=== PATIENT | male | born 1960 | race Caucasian/White ===

== ENCOUNTER 2024-02-29 14:41 | Inpatient (IN) | payer SELFPAY ==
[2024-02-29] VITALS (25 sets, daily range): BP systolic 148–187; BP diastolic 87–124; PULSE 76–101; RESP 14–20; TEMP 36.4–36.8; O2SAT 94–98; BMI 35.9; BMI 34.1
--- NOTE | 2024-02-29 14:43 | ECG_ITS ---
APPROVED REPORT Exam: Resting ECG HR:98 bpm ECG Measurements Heart Rate 98 AXES MI 157 P 50 QRSd 75 QRS -20 QT 346 T 23 QTc 402 Conclusion SINUS RHYTHM LOW QRS VOLTAGE IN PRECORDIAL LEADS [QRS DEFLECTION < 1.0 mV IN CHEST LEADS] POSSIBLE RIGHT VENTRICULAR CONDUCTION DELAY [RSR (QR) IN V1/V2] POSSIBLE ANTERIOR MYOCARDIAL INFARCTION , PROBABLY OLD [30 ms Q WAVE IN V3/V4, OR R < 0.2 mV IN V4] INFERIOR MYOCARDIAL INFARCTION , PROBABLY OLD [40+ ms Q WAVE AND/OR ST/T ABNORMALITY IN II/aVF] ABNORMAL ECG Concern for acute ischemia Electronically signed by : ELO GRIGGS, 02/29/2024 16:25:23
--- NOTE | 2024-02-29 14:43 | PC.NURSE ---
Ariel PA at BS for pt eval; family at BS
--- NOTE | 2024-02-29 14:49 | PC.NURSE ---
STEMI overhead paged
--- NOTE | 2024-02-29 14:50 | ED_ITS ---
<Statement entered by Margaret Solis DO - 02/29/24 16:15> I was consulted by the [place], and we discussed the complexity of the problems being addressed. I approved the treatment and management plan for this patient's care in the emergency department, thus performing a substantive portion of the medical decision making. I interpreted the EKG and noted that it was concerning for STEMI, so Patient Accounts Specialist was activated after an interactive discussion with Dr. Yan. He advised heparin bolus as well as Brilinta, which I ordered. Patient was also given aspirin to complete the dose of aspirin that he took prior to arrival. Patient was taken to Patient Accounts Specialist in stable condition. I independently interpreted the EKG at 1446. Normal sinus rhythm with a ventricular rate of [address] elevations noted in aVL, V1, V2 with depressions in leads III and aVF. Concern for acute ischemia. Margaret Solis DO Discharge Plan Clinical Impressions Clinical Impression: ST elevation (STEMI) myocardial infarction Discharge ED Provider: Margaret Solis HPI General Stated Complaint: CP Time Seen by Provider: 02/29/24 14:46 History of Present Illness HPI narrative: Patient presents for evaluation of chest pain. Patient states that he has been having chest pain off and on since last evening. He first noticed it last evening during splitting wood. He describes it as a dull but intense pain located in his left chest radiates to his back. Patient has treated it with baking soda and water. He is had it all day with waxing and waning intensity. He denies any diaphoresis vomiting diarrhea but does endorse nausea. [facility] Disclaimer: The information contained in this section may have been updated after the patient was seen, as this information can be updated by other users. Social History Smoking Status: Never smoker alcohol intake: never current occupational status: retired Travel in the last 8 weeks: None ROS Obtained: Yes Systems reviewed as appropriate & no additional complaints except as documented Physical Exam General General appearance: alert and in no apparent distress Chest Chest inspection: Absent tenderness Respiratory Respiratory exam: Present normal lung sounds bilaterally; Absent respiratory distress Cardiovascular Cardiovascular exam: Present regular rate, normal heart sounds, +S1 and +S2 Abdominal Exam Abdominal exam: Present soft and normal bowel sounds; Absent tenderness, guarding, rebound or rigidity Extremities Exam Extremities exam: Present normal inspection and full ROM Back Exam Back exam: Present normal inspection and full ROM; Absent tenderness Neurological Exam Neurological exam: Present alert and oriented X3 HEART Score HEART Score HEART Score assessment performed?: No Critical Care Critical Care Time Critical Care Time: Yes Attestation: On , the high probability of a clinically significant, sudden or life threaten ing deterioration of the following system(s) required my full and direct attention, intervention and personal management. The time I documented below is in addition to time spent performing reported procedures but includes the following listed in this critical care notation. Total Time Total Critical Care Time: 30 Medical Decision Making Medical Records Medical records reviewed: Yes I reviewed the patient's medical records. [facility] Inquiry Pt receiving controlled substance: No Lab Data Lab results reviewed: Yes I reviewed the patient's lab results. Response Orders (Tests/Meds): ED MEDICATIONS Generic Name Dose Route Start Last Admin Trade Name Freq PRN Reason Stop Dose Admin Ticagrelor 180 mg 02/29/24 14:49 Ticagrelor 90mg Tablet PO 02/29/24 14:50 ONCE ONE Discontinued Medications Generic Name Dose Route Start Last Admin Trade Name Freq PRN Reason Stop Dose Admin Aspirin 324 mg 02/29/24 14:47 Aspirin 81mg Chewable Tablet PO 02/29/24 14:48 ONCE ONE Heparin Sodium (Porcine) 11,300 unit 02/29/24 14:49 Heparin Sodium 5,000 Unit/Ml Vial 100 unit/kg (89511 unit) 02/29/24 14:50 IV ONCE ONE ORDERS Category Date Time Status Cardiology Consult [Consult to Cardiology] [CONS] Cons 02/29/24 14:50 Active Routine Complete Blood Count Auto Diff Stat Lab 02/29/24 14:45 Received Comprehensive Metabolic Panel Stat Lab 02/29/24 14:45 Received Trop I [Troponin I] Stat Lab 02/29/24 14:45 Received Troponin I Q3H Lab 02/29/24 18:00 Ordered Troponin I Q3H Lab 02/29/24 21:00 Ordered MDM Narrative Medical Decision Narrative: In summary patient is a 64-year-old male who presents to the emergency department for evaluation of chest pain. Patient is significantly hypertensive with a systolic blood pressure greater than 180 but otherwise hemodynamically stable. Patient is afebrile. Physical exam is remarkable for no reproducible chest pain on palpation normal breath sounds no abdominal tenderness equal bilateral pulses. Differential diagnosis includes ACS versus dissection versus intestinal cause. Initial workup will be conducted with hematologic labs twel ve-lead EKG. Twelve-lead EKG shows ST elevation with Q wave formation. Code STEMI called and cardiology consultation about patient management. Patient will be taken directly to the Patient Accounts Specialist after cardiology consultation further workup will be pending by the hospitalist team after cardiac catheterization.
--- NOTE | 2024-02-29 14:54 | IR_ITS ---
APPROVED REPORT Patient Location: Outpatient Grinder Set Up Operator Gear Tool: SANDRA Monk RT (R) PROCEDURES Left heart catheterization Left ventriculogram Selective coronary angiogram Drug-eluting stent deployment to the proximal to mid LAD INDICATION Acute anterior ST elevation myocardial infarction, Coronary artery disease Informed consent was obtained prior to the procedure. COMPLICATIONS NONE Estimated Blood Loss: LESS THAN 10 ML TECHNIQUE One percent lidocaine used to anesthetize the right anterior aspect of the wrist. The right radial artery was accessed via the Seldinger technique. A 6 Kenyan sheath was placed in the right radial artery. 2.5 mg of Verapamil, 800 mcg of nitroglycerin, 1mg Lidocaine and 5000 U Heparin were given through the arterial sheath. The papa catheter was also used to perform left heart catheterization, left ventriculogram and selective coronary angiogram. At the end the diagnostic angiogram the guide catheter was placed in left main artery followed by Choice PT extra-support wire placed down the LAD. A guide liner was advanced and a 3.5 x 38 mm Gibson frontier stent was deployed at 16 ba reducing the critical stenosis to 0%. JOVANY II flow was improved to JOVANY-3 flow. At the end of the procedure the apparatus was removed the sheath was removed and hemostasis was achieved using TR banding patient was transferred to the postop putting in stable condition ANGIOGRAPHIC RESULTS The left main artery Normal The left anterior descending artery Has proximal 30 to 40% stenoses with a mid vessel focal greater than 90% stenosis accompanied by JOVANY II flow. Following revascularization there was wide patency throughout the LAD The circumflex artery Large and dominant giving rise to a large second obtuse marginal artery which has proximal 70 and mid vessel 80% stenosis which then goes on and supplies a large posterior descending artery The right coronary artery Is codominant and has a 70 to 80% stenosis in the distal segment The DAVE ventriculogram reveals Dilated ventricle anterior hypokinesis estimate ejection fraction 25% The left ventricular end-diastolic pressure Severely elevated at [address] elevation myocardial infarction accompanied by drug-eluting stent deployment to the proximal to mid LAD reducing the critical stenosis to 0% Persistent severe stenosis and a large codominant circumflex artery Persistent severe stenosis in the distal codominant right coronary artery Severely reduced ejection fraction with elevated LVEDP PLAN 1. Continue Brilinta and aspirin 2. Start Entresto and uptitrate 3. Hold for beta-blockers for the time being and start once more hemodynamically stable and after patient is tolerating Entresto 4. Start high intensity statin with a goal LDL less than 55 5. Echocardiogram in the morning 6. LifeVest prior to discharge 7. Supportive care Electronically signed by : Randy Yan MD 02/29/2024 15:59:17
[2024-02-29 14:57] LABS: Chloride 106 mmol/L (98-107); Sodium 141 mmol/L (136-145)
[2024-02-29 15:00] LABS: Alanine Aminotransferase 72 U/L (12-78); Albumin/Globulin Ratio 1.5 (1.1-1.8); Alkaline Phosphatase 96 U/L (38-126); Aspartate Amino Transferase 125 U/L (17-59); Blood Urea Nitrogen 12 mg/dl (9-20); Carbon Dioxide 29 mmol/L (22.0-30.0); Creatinine Clearance Estimated 101 mL/min (50-200); Estimated Glomerular Filt Rate 61 ml/min (>60); GFR (African American) 74 ML/MIN (>60); Globulin 3.4 g/dL (1.3-3.2); Total Protein,Serum 8.4 g/dl (6.3-8.2)
[2024-02-29 15:01] LABS: Calcium 9.5 mg/dl (8.4-10.2); Glucose 121 mg/dl (74-100)
--- NOTE | 2024-02-29 15:07 | P.CONCA_ITS ---
History of Present Illness History of Present Illness Consult date: 02/29/24 Requesting physician: Margaret Solis Consult reason: chest pain Chief complaint: chest pain History of present illness: 64-year-old white male without known cardiovascular disease who states he has had high blood pressure untreated for over 1 year because he did not like the way the blood pressure meds made him feel. He is not diabetic and denies alcohol and tobacco use. Was chopping and stacking wood last night when he began developing mild chest discomfort. Thought it was GI related so he took baking soda which did not help much. Symptoms continued this morning he presented to the emergency room. EKG in triage shows ST changes V1 V2 with possible reciprocal changes in II and III. Blood pressure is 187/115. Patient is in no acute distress. EKG was sent to Dr. Yan and patient is being prepped for Shelving Supervisor. I discussed case with patient and his son who are agreeable to proceed as planned. Code STEMI has been called. No labs are available yet. [facility] Disclaimer: The information contained in this section may have been updated after the patient was seen, as this information can be updated by other users. Social History Smoking Status: Never smoker alcohol intake: never current occupational status: retired Travel in the last 8 weeks: None Review of Systems Constitutional Constitutional: Denies fatigue and Denies weakness Eyes Eyes: Denies loss of vision ENT Ears, Nose, Mouth, and Throat: Denies hearing loss and Denies vertigo *Cardiovascular Cardiovascular: Reports chest pain, Denies dyspnea and Denies syncope *Respiratory Respiratory: Denies cough and Denies dyspnea *Gastrointestinal Gastrointestinal: Denies change in stool character, Denies nausea and Denies vomiting *Genitourinary Genitourinary: Denies difficulty urinating *Musculoskeletal Musculoskeletal: Denies muscle weakness Integumentary/Breasts Skin/Breast: Denies changing lesions *Neurologic Neurologic: Denies loss of vision, Denies syncope, Denies vertigo and Denies weakness Endocrine Endocrine: Denies fatigue Exam Data for Last 24 hours Vital signs and Labs for Last 24 Hours: Temp Pulse Resp BP Pulse Ox O2 Del Method 97.7 F 96 H 16 187/115 H 98 Room Air 02/29/24 14:52 02/29/24 14:52 02/29/24 14:52 02/29/24 14:52 02/29/24 14:52 02/29/24 14:52 Laboratory Results - last 24 hr 02/29/24 14:45: Sodium 141, Potassium 4.0, Chloride 106, Carbon Dioxide 29, Anion Gap 10.0, BUN 12, Creatinine 1.20, Estimated Creat Clear 101, Estimated GFR 61, Est GFR ( Amer) 74, Glucose 121 H, Calcium 9.5, Total Bilirubin 1.0, AST 125 H, ALT 72, Alkaline Phosphatase 96, Total Protein 8.4 H, Albumin 5.0, Globulin 3.4 H, Albumin/Globulin Ratio 1.5 I & O for Last 24 hours: Intake & Output 02/26/24 02/27/24 02/28/24 02/29/24 23:59 23:59 23:59 23:59 Weight 250 lb Constitutional Constitutional: no acute distress and cooperative *Routine HEENT Exam Eye: Present PERRL *Routine Respiratory Exam Respiratory: Present CTA bilaterally; Absent accessory muscle use, wheezes or crackles *Routine Cardiovascular Exam Cardiovascular: Present RRR, Normal S1 and Normal S2; Absent murmur, gallop or rubs *Routine Abdominal Exam Abdominal: Present soft; Absent tenderness *Routine Extremities Exam Extremities: Present pulses intact; Absent cyanosis or edema *Routine Skin Exam Skin: Present intact; Absent erythema or wounds *Routine Neurological Exam Neurological: Present alert and oriented X3 Routine Psychiatric Exam Psychiatric: Present cooperative Meds Home Medications and Allergies New Prescriptions to Start Prescriptions: Allergies Allergy/AdvReac Type Severity Reaction Status Date / Time No Known Allergies Allergy Verified 02/29/24 15:04 Assessment and Plan *Assessment and plan (1) ST elevation (STEMI) myocardial infarction: Status: Acute Qualifiers: Involved coronary artery: unspecified coronary artery Qualified Code(s): I21.3 - ST elevation (STEMI) myocardial infarction of unspecified site Category: Medical Code(s): I21.3 - ST elevation (STEMI) myocardial infarction of unspecified site Plan AW-STEMI - STEMI protocol in place, pt going immediately to laborer/key man [facility] Emergency - untreated >1 year per pt - BP 180s with CP - reevaluate post cath - consider AAA, pulses equal, pain is mild Further plans pending, post cath
[2024-02-29 15:13] LABS: Troponin I 6.23 ng/ml (0.00-0.034)
--- NOTE | 2024-02-29 15:14 | PC.NURSE ---
Dr. Solis notified of Troponin of 6.23.
--- NOTE | 2024-02-29 15:23 | PC.NURSE ---
Patient taken to lab intern.
[2024-02-29 15:24] LABS: Basophils # 0.1 K/mm3 (0-0.2); Basophils % 1.1 % (0.1-2.0); Eosinophils % 0.2 % (0.1-12.0); Hematocrit 51.6 % (42.0-52.0); Hemoglobin 16.9 g/dL (14.1-18.0); Lymphocytes # 2.3 K/mm3 (0.7-4.5); Mean Corpuscular HGB Conc 32.7 g/dL (31.8-35.4); Mean Corpuscular Hemoglobin 30.2 pg (27.0-31.2); Mean Corpuscular Volume 92.1 fl (80-94); Mean Platelet Volume 9.2 fl (7.4-10.4); Monocytes # 0.7 K/mm3 (0.1-1.0); Monocytes % 7.8 % (1.7-9.3); Neutrophils # 6.4 K/mm3 (1.8-7.8); Neutrophils % 66.9 % (37.0-80.0); Platelet Count 222 K/mm3 (142-424); Red Cell Distribution Width 14.3 % (11.5-17.5); White Blood Count 9.5 K/mm3 (4.8-10.8)
--- NOTE | 2024-02-29 15:30 | PC.NURSE ---
REPORT GIVEN TO ROSAMARIA THOMPSON
[2024-02-29] MEDS: HEPARIN SODIUM 5,000 UNIT/ML VIAL 11300 UNIT IV (15:35)
[2024-02-29] MEDS: HEPARIN 1,000 UNITS/500ML NS (CATH LAB) 3000 UNIT IV (15:36)
[2024-02-29] MEDS: ASPIRIN 81MG CHEWABLE TABLET 324 MG PO (15:36)
[2024-02-29] MEDS: LIDOCAINE 1% 10ML MDV 20 ML IJ ×2 (15:36→15:39)
[2024-02-29] MEDS: TICAGRELOR 90MG TABLET 180 MG PO (15:37)
[2024-02-29] MEDS: MIDAZOLAM 2MG/2ML VIAL 1 MG IV (15:37)
[2024-02-29] MEDS: 0.9 % SODIUM CHLORIDE 500 ML 25 ML IV (15:37)
[2024-02-29] MEDS: diphenhydrAMINE 50MG/ML VIAL 50 MG IV (15:39)
[2024-02-29] MEDS: FENTANYL 100MCG/2ML VIAL 50 MCG IV (15:39)
[2024-02-29] MEDS: VERAPAMIL 2.5MG/ML 2ML VIAL 2.5 MG IV (15:40)
[2024-02-29] MEDS: NITROGLYCERIN 800MCG/8ML SYR (CATH LAB) 800 MCG IA (15:41)
[2024-02-29] MEDS: IOPAMIDOL-370 (76%);100ML BOTTLE 110 ML IV (16:24)
[2024-02-29 16:27] LABS: CATHL Activated Clotting Time 340 SEC (74-125)
--- NOTE | 2024-02-29 17:28 | PC.NURSE ---
PATIENT ARRIVED TO FLOOR BY STRETCHER [address] MICHELLE, SRNA
--- NOTE | 2024-02-29 18:06 | P.HP_ITS ---
History of Present Illness *Admission Date: 02/29/24 *Reason for visit:: ST elevation NC, hypertensive emergency *History of present illness: Really nice patient with past medical history of hypertension without medication. Patient presented to hospital complaining of chest pain. Patient found to have STEMI in emergency room and immediately taken to [facility]. Patient evaluated by Dr. Rodriguez prior to [employer] [facility] trip. Stated that he suffered from chest discomfort today 5/10, achy, substernal, nonradiating without prodromal symptoms. Denied taking any medications at home. Denied fevers, chills, known sick contacts, recent travel, blurry vision, headaches, abdominal pain, diarrhea, constipation. Patient received LAD stent in [employer] and noted to have ejection fraction 25%. Denies history of heart failure. Blood pressure consistently above 160/100 during initial hospitalization evaluations. Denies taking blood pressure medicines at home. [facility] Disclaimer: The information contained in this section may have been updated after the patient was seen, as this information can be updated by other users. Social History Smoking Status: Never smoker alcohol intake: never current occupational status: retired Travel in the last 8 weeks: None Review of Systems Review of Systems Review of systems:: pertinent systems reviewed and negative unless documented below Constitutional Constitutional: Denies weakness Eyes Eyes: Denies loss of vision ENT Ears, Nose, Mouth, and Throat: Denies vertigo *Cardiovascular Cardiovascular: Denies syncope *Neurologic Neurologic: Denies loss of vision, Denies syncope, Denies vertigo and Denies weakness Meds Home Medications and Allergies Home Medications ?Medication ?Instructions ?Recorded ?Confirmed ?Type hawthorn 500 mg capsule (hawthorn 500 mg PO DAILY 02/29/24 02/29/24 History anna) New Prescriptions to Start Prescriptions: Allergies Allergy/AdvReac Type Severity Reaction Status Date / Time No Known Allergies Allergy Verified 02/29/24 15:04 Exam Data for Last 24 hours Vital signs and Labs for Last 24 Hours: Temp Pulse Resp BP Pulse Ox O2 Del Method 97.7 F 83 18 167/123 H 97 Room Air 02/29/24 15:21 02/29/24 17:45 02/29/24 17:45 02/29/24 17:45 02/29/24 17:45 02/29/24 17:45 Laboratory Results - last 24 hr 02/29/24 14:45: WBC 9.5, RBC 5.60, Hgb 16.9, Hct 51.6, MCV 92.1, MCH 30.2, MCHC 32.7, RDW 14.3, Plt Count 222, MPV 9.2, Neut % (Auto) 66.9, Lymph % (Auto) 24.0, [place] % (Auto) 7.8, Eos % (Auto) 0.2, Baso % (Auto) 1.1, Neut # (Auto) 6.4, Lymph # (Auto) 2.3, [place] # (Auto) 0.7, Eos # (Auto) 0.0, Baso # (Auto) 0.1, Sodium 141, Potassium 4.0, Chloride 106, Carbon Dioxide 29, Anion Gap 10.0, BUN 12, Creatinine 1.20, Estimated Creat Clear 101, Estimated GFR 61, Est GFR ( Amer) 74, Glucose 121 H, Calcium 9.5, Total Bilirubin 1.0, AST 125 H, ALT 72, Alkaline Phosphatase 96, Troponin I 6.23 H, Total Protein 8.4 H, Albumin 5.0, Globulin 3.4 H, Albumin/Globulin Ratio 1.5 02/29/24 15:21: Activated Clotting Time 340 H* I & O for Last 24 hours: Intake & Output 02/26/24 02/27/24 02/28/24 02/29/24 23:59 23:59 23:59 23:59 Output Total 0 / 0 Balance 0 / 0 Weight 113.398 kg *Routine HEENT Exam Head: Present normocephalic Eye: Present EOMI and normal accommodation ENT: Present mucous membranes moist *Routine Neck Exam Neck: Present supple, full ROM and normal carotid upstroke *Routine Respiratory Exam Respiratory: Present CTA bilaterally and normal respiratory effort *Routine Cardiovascular Exam Cardiovascular: Present Normal S1 and Normal S2 *Routine Abdominal Exam Abdominal: Present soft and normoactive bowel sounds *Routine Rectal Exam Rectal:: deferred *Routine Genitalia Exam Genitalia:: deferred *Routine Extremities Exam Extremities: Present full ROM and normal capillary refill *Routine Skin Exam Skin: Present intact and dry *Routine Neurological Exam Neurological: Present alert, oriented X3 and CN II-XII intact H&P: Result Impressions 02/29/2024 cardiac catheterization EF 25%, with LAD stent placed during cardiac cath. Assessment and Plan *Assessment and plan (1) ST elevation (STEMI) myocardial infarction: Status: Acute Qualifiers: Involved coronary artery: unspecified coronary artery Qualified Code(s): I21.3 - ST elevation (STEMI) myocardial infarction of unspecified site Category: Medical Code(s): I21.3 - ST elevation (STEMI) myocardial infarction of unspecified site (2) Acute systolic CHF (congestive heart failure): Status: Acute Category: Medical Code(s): I50.21 - Acute systolic (congestive) heart failure (3) Hypertensive emergency: Status: Acute Category: Medical Code(s): I16.1 - Hypertensive emergency Plan STEMI status post emergent cardiac catheterization: ? Admit to stepdown, LAD stent placed in [employer]. EF 25%. New onset heart failure with reduced ejection fraction EF 25%: ? EF 25% noted on cardiac cath today. Order echocardiogram for tomorrow, consult cardiology. Cautious fluid management throughout hospitalization. Start Entresto today. Hypertensive emergency: ? Started on Entresto today. Also start hydrochlorothiazide 25 p.o. daily. Patient's blood pressure consistently above 160/100 during initial hospital assessments. Also placed as needed IV hydralazine on chart for elevated blood pressures. PPx: Lovenox subcutaneous starting 03/21. Patient given IV heparin in [employer] today. CODE STATUS full FEN: Cardiac diet
[2024-02-29] MEDS: hydroCHLOROthiazide 25MG TABLET 25 MG PO (18:13)
[2024-02-29] MEDS: SACUBITRIL/VALSARTAN 24-26MG TABLET 1 EACH PO (18:13)
[2024-02-29] MEDS: HYDRALAZINE 20MG/ML VIAL 10 MG IV (20:20)
--- NOTE | 2024-02-29 20:56 | PC.NURSE ---
Radialband off at this time, tegaderm and 2x2s applied. No bleeding noted, no bruising.
--- NOTE | 2024-02-29 21:33 | P.PN_ITS ---
Subjective *Date: 02/29/24 *Time: 21:33 Interval history: Nurses reported using medication to try to bring blood pressure down, including as needed medication, systolic blood pressure still 160. Nurse reported to me that the patient did have a history of anxiety and was feeling anxious tonight Exam Data for Last 24 hours Vital signs and Labs for Last 24 Hours: Temp Pulse Resp BP Pulse Ox O2 Del Method 98.2 F 101 H 18 172/115 H 94 L Room Air 02/29/24 19:15 02/29/24 20:15 02/29/24 20:15 02/29/24 20:15 02/29/24 20:15 02/29/24 20:56 Laboratory Results - last 24 hr 02/29/24 14:45: WBC 9.5, RBC 5.60, Hgb 16.9, Hct 51.6, MCV 92.1, MCH 30.2, MCHC 32.7, RDW 14.3, Plt Count 222, MPV 9.2, Neut % (Auto) 66.9, Lymph % (Auto) 24.0, [place] % (Auto) 7.8, Eos % (Auto) 0.2, Baso % (Auto) 1.1, Neut # (Auto) 6.4, Lymph # (Auto) 2.3, [place] # (Auto) 0.7, Eos # (Auto) 0.0, Baso # (Auto) 0.1, Sodium 141, Potassium 4.0, Chloride 106, Carbon Dioxide 29, Anion Gap 10.0, BUN 12, Creatinine 1.20, Estimated Creat Clear 101, Estimated GFR 61, Est GFR ( Amer) 74, Glucose 121 H, Calcium 9.5, Total Bilirubin 1.0, AST 125 H, ALT 72, Alkaline Phosphatase 96, Troponin I 6.23 H, Total Protein 8.4 H, Albumin 5.0, Globulin 3.4 H, Albumin/Globulin Ratio 1.5 02/29/24 15:21: Activated Clotting Time 340 H* I & O for Last 24 hours: Intake & Output 02/26/24 02/27/24 02/28/24 02/29/24 23:59 23:59 23:59 23:59 Intake Total 120 / 120 Output Total 0 / 0 Balance 120 / 120 Weight 120.712 kg Constitutional Constitutional: no acute distress and obese Comments: Alert oriented expressing no difficulty except his anxiety *Routine Respiratory Exam Respiratory: Present normal respiratory effort and able to speak in complete sentences *Routine Cardiovascular Exam Cardiovascular: Present RRR Comments: No chest pain, Routine Psychiatric Exam Psychiatric: Present normal affect, cooperative, good insight and good judgment Assessment and Plan *Assessment and plan (1) Hypertension: Status: Acute Qualifiers: Hypertension type: renovascular hypertension Qualified Code(s): I15.0 - Renovascular hypertension Category: Medical Code(s): I10 - Essential (primary) hypertension (2) Anxiety: Status: Acute Category: Medical Code(s): F41.9 - Anxiety disorder, unspecified Plan 1. Hypertension/anxiety, patient has received his blood pressure medicine including as needed medication, without expected results. Systolic still greater than 160. My examination finds he is having no chest pain monitors appear to be normal no difficulty with respiration. He is active alert his is in the room they did discuss the fact that he does have anxiety and it has been worsening as he is getting older. With that today has been quite trying for him. :Plan to try Valium 2 mg p.o., hoping that this will help him sleep will continue to monitor him throughout the night keeping an eye on O2 saturations. Reason for this also talking with him he is a snorer according to his has never had a sleep study. Will evaluate for any decrease in oxygenation if he is able to get into a deep sleep. If blood pressure does not decrease to acceptable level would like to get him closer to 240 systolic, may try extra medication.
[2024-02-29] MEDS: diazePAM 2MG TABLET 2 MG PO (21:41)
[2024-03-01] VITALS (12 sets, daily range): BP systolic 108–149; BP diastolic 41–109; PULSE 70–91; RESP 14–22; TEMP 36.5–37.1; O2SAT 91–99; BMI 33.4
--- NOTE | 2024-03-01 04:56 | PC.NURSE ---
Alert and oriented. Pt has had no complaints of chest pain throughout the night. Radialband removed this shift, tegaderm and 2x2s placed, dressing CDI. Pt blood pressure has been elevated intermittently throughout shift, [facility] aware, treated patient with PRN medication to lower BP. Pt did complain of having anxiety, states he feels very anxious at times at home, SKYLA Sarabia notified of anxiety, treated per aug. Pt did state intermittently throughout the night he would wake up and feel SOA, sweaty, and get anxious, this was relayed to this nurse on second assessment, [facility] notified of patient statement, no new orders at this time. Uses the urinal independently. Has ambulated in the room with no issues. remained at bedside throughout the night. Tolerated room air, O2 sat >90%. Call light in reach.
[2024-03-01 06:17] LABS: Basophils # 0.1 K/mm3 (0-0.2); Basophils % 0.5 % (0.1-2.0); Eosinophils % 0.2 % (0.1-12.0); Hematocrit 51.2 % (42.0-52.0); Hemoglobin 17.1 g/dL (14.1-18.0); Lymphocytes # 1.7 K/mm3 (0.7-4.5); Lymphocytes % 17.3 % (10-50); Mean Corpuscular HGB Conc 33.3 g/dL (31.8-35.4); Mean Corpuscular Hemoglobin 30.6 pg (27.0-31.2); Mean Corpuscular Volume 91.8 fl (80-94); Mean Platelet Volume 8.4 fl (7.4-10.4); Monocytes # 0.9 K/mm3 (0.1-1.0); Monocytes % 8.5 % (1.7-9.3); Neutrophils # 7.4 K/mm3 (1.8-7.8); Neutrophils % 73.6 % (37.0-80.0); Platelet Count 197 K/mm3 (142-424); Red Blood Count 5.58 M/mm3 (4.60-6.20); Red Cell Distribution Width 14.7 % (11.5-17.5); White Blood Count 10.1 K/mm3 (4.8-10.8)
[2024-03-01 06:34] LABS: Anion Gap 13.8 mEq/L (5-15); Blood Urea Nitrogen 10 mg/dl (9-20); Calcium 9.5 mg/dl (8.4-10.2); Carbon Dioxide 20 mmol/L (22.0-30.0); Chloride 108 mmol/L (98-107); Chol/HDL Ratio 7.6 (1-3.5); Cholesterol 287 mg/dl (140-200); Creatinine Clearance Estimated 126 mL/min (50-200); Estimated Glomerular Filt Rate 75 ml/min (>60); GFR (African American) 91 ML/MIN (>60); Glucose 130 mg/dl (74-100); HDL Cholesterol 38 mg/dl (40-60); Magnesium 2.1 mg/dl (1.6-2.3); Potassium 3.8 mmoL/L (3.5-5.1); Sodium 138 mmol/L (136-145); Triglycerides 244 mg/dl (30-150); VLDL Cholesterol 49 mg/dL (0-40)
--- NOTE | 2024-03-01 06:39 | XR_ITS ---
FINAL REPORT CLINICAL HISTORY: CHF, COPD FINDINGS: SINGLE-VIEW CHEST The heart size is normal. The mediastinum is normal. The lungs are clear. There is no pneumothorax. IMPRESSION: No acute cardiopulmonary process. Reviewed, Interpreted and Dictated by Reg Perez III, MD Transcribed by Marita Salmon Authenticated and [facility]
--- NOTE | 2024-03-01 06:39 | CA_ITS ---
APPROVED REPORT EXAM: Comprehensive 2D, Doppler, and color-flow Echocardiogram [place]: ANNIKA Willett, RVS Ht: 6 ft 2 in Wt: 260lbs BSA: 2.43 BP: 129/92 mmHg Indications: STEMI, Dilated CM per Cath, Untreated HTN, H/O pedal edema 2D Dimensions IVSd 1.21 cm LVEF (Visual) 69.90 % PWd 1.24 cm LA Volume 58.80 mL LVDd 5.14 cm LA Volume Index 24.768169 mL/m2 (M/F) 16-34 LVDs 3.10 cm EF AP4 52.60 % Left Atrium 4.74 cm GL Strain -15.5 % M-Mode Dimensions LA Diam 4.26 cm (1.9-4.0) EPSs 1.03 cm TAPSE 1.79 (<1.7) LV Diastology E Decel Time 153 (160-240 msec) E/A Ratio 0.55 MED A' 12.50 cm/s LAT A' 10.30 cm/s Aortic Valve CHELA Index 1.35 cm2/m2 AoV Peak Rajinder. 97.0 (50-130 cm/s) AO Peak GR. 3.80 mmHg AO Mean GR. 1.90 (<5 mmHg) AO VTI 14.3 (18-25 cm) CHELA (VTI) 3.35 (2.5-4.5 cm2) Mitral Valve MV A Velocity 77.0 (40-130 cm/s) E/A Ratio 0.55 Pulmonary Valve PV Peak Velocity 88.0 (50-150 cm/s) Left Ventricle The left ventricle is normal size. The left ventricular systolic function is mildly reduced. There is increased LV wall thickness. The bases have normal contractility. There is severe hypokinesis of the LV apex. Transmitral Doppler flow pattern suggests impaired LV relaxation. LVEF is 45%. Right Ventricle Right ventricle is mildly dilated. The right ventricular systolic function is normal. Atria The left atrium size is normal. The right atrium size is normal. There is no Doppler evidence of interatrial shunt. Aortic Valve The aortic valve opens well. There is no aortic valvular stenosis. No aortic regurgitation is present. Mitral Valve The mitral valve is normal in structure. No evidence of mitral valve stenosis. Trace mitral valve regurgitation noted. Tricuspid Valve Tricuspid valve is grossly normal in structure and function. Trace tricuspid regurgitation. There is insufficient TR jet to estimate RVSP. Pulmonic Valve The pulmonary valve is normal in structure. Trace pulmonic regurgitation. Great Vessels The aortic root is normal in size. The ascending aorta is normal in size. IVC is normal in size and collapses >50% with inspiration. Pericardium There is no pericardial effusion. Other Information Study Quality: Fair Conclusion Mild reduction in LV systolic function (LVEF 45%). The bases have normal contractility. There is severe hypokinesis of the LV apex. Mild RV dilation. No significant valvular stenosis or regurgitation. Electronically signed by : Katharina Camarena MD 03/01/2024 12:40:49
[2024-03-01 06:45] LABS: Direct LDL Cholesterol 182.51 mg/dL (100-129)
--- NOTE | 2024-03-01 07:16 | ECG_ITS ---
APPROVED REPORT Exam: Resting ECG HR:88 bpm ECG Measurements Heart Rate 88 AXES FL 147 P 36 QRSd 94 QRS -61 QT 379 T 100 QTc 425 Conclusion SINUS RHYTHM POSSIBLE LEFT ATRIAL ENLARGEMENT [-0.1mV P-WAVE IN V1/V2] LOW QRS VOLTAGE IN PRECORDIAL LEADS [QRS DEFLECTION < 1.0 mV IN CHEST LEADS] LEFT ANTERIOR FASCICULAR BLOCK [QRS AXIS <= -45, QR IN I, RS IN II] Atrial abnormality. Nonspecific ST-T wave changes and poor R wave progression, unchanged from yesterday's tracing ABNORMAL ECG UNCONFIRMED REPORT Electronically signed by : Luis Enrique Anaya MD 03/01/2024 08:10:10
[2024-03-01] MEDS: PANTOPRAZOLE 40MG TABLET 40 MG PO (08:35)
[2024-03-01] MEDS: ENOXAPARIN 40MG/0.4ML SYRINGE 40 MG SQ (08:35)
[2024-03-01] MEDS: SPIRONOLACTONE 25MG TABLET 25 MG PO (08:35)
[2024-03-01] MEDS: SACUBITRIL/VALSARTAN 24-26MG TABLET 1 EACH PO ×2 (08:35→20:00)
[2024-03-01] MEDS: hydroCHLOROthiazide 25MG TABLET 25 MG PO (08:37)
[2024-03-01] MEDS: DAPAGLIFLOZIN PROPANEDIOL 10 MG TABLET PO (10:22)
[2024-03-01] MEDS: ASPIRIN EC 81MG TABLET 81 MG PO (10:23)
[2024-03-01] MEDS: METOPROLOL SUCCINATE XL 25MG TABLET 25 MG PO (10:23)
--- NOTE | 2024-03-01 10:54 | EXP.CARD.PN ---
Subjective Subjective Date: 03/01/24 Time: 10:54 Interval history: Successful cath yesterday with stenting of LAD. Patient reports feeling significantly better this morning. BP improved and stable. Patient reports shortness of breath with his Brilinta. Exam Data for Last 24 hours Vital signs and Labs for Last 24 Hours: Temp Pulse Resp BP Pulse Ox O2 Del Method 98.0 F 81 20 108/79 L 94 L Room Air 03/01/24 08:02 03/01/24 10:00 03/01/24 10:00 03/01/24 10:00 03/01/24 10:00 03/01/24 10:00 Laboratory Results - last 24 hr 02/29/24 14:45: WBC 9.5, RBC 5.60, Hgb 16.9, Hct 51.6, MCV 92.1, MCH 30.2, MCHC 32.7, RDW 14.3, Plt Count 222, MPV 9.2, Neut % (Auto) 66.9, Lymph % (Auto) 24.0, [place] % (Auto) 7.8, Eos % (Auto) 0.2, Baso % (Auto) 1.1, Neut # (Auto) 6.4, Lymph # (Auto) 2.3, [place] # (Auto) 0.7, Eos # (Auto) 0.0, Baso # (Auto) 0.1, Sodium 141, Potassium 4.0, Chloride 106, Carbon Dioxide 29, Anion Gap 10.0, BUN 12, Creatinine 1.20, Estimated Creat Clear 101, Estimated GFR 61, Est GFR ( Amer) 74, Glucose 121 H, Calcium 9.5, Total Bilirubin 1.0, AST 125 H, ALT 72, Alkaline Phosphatase 96, Troponin I 6.23 H, Total Protein 8.4 H, Albumin 5.0, Globulin 3.4 H, Albumin/Globulin Ratio 1.5 02/29/24 15:21: Activated Clotting Time 340 H* 03/01/24 05:17: WBC 10.1, RBC 5.58, Hgb 17.1, Hct 51.2, MCV 91.8, MCH 30.6, MCHC 33.3, RDW 14.7, Plt Count 197, MPV 8.4, Neut % (Auto) 73.6, Lymph % (Auto) 17.3, [place] % (Auto) 8.5, Eos % (Auto) 0.2, Baso % (Auto) 0.5, Neut # (Auto) 7.4, Lymph # (Auto) 1.7, [place] # (Auto) 0.9, Eos # (Auto) 0.0, Baso # (Auto) 0.1, Sodium 138, Potassium 3.8, Chloride 108 H, Carbon Dioxide 20 L, Anion Gap 13.8, BUN 10, Creatinine 1.00, Estimated Creat Clear 126, Estimated GFR 75, Est GFR ( Amer) 91 D, Glucose 130 H, Calcium 9.5, Magnesium 2.1, Triglycerides 244 H, Cholesterol 287 H, LDL Cholesterol Direct 182.51 H, VLDL Cholesterol 49 H, HDL Cholesterol 38 L, Cholesterol/HDL Ratio 7.6 H I & O for Last 24 hours: Intake & Output 02/27/24 02/28/24 02/29/24 03/01/24 23:59 23:59 23:59 23:59 Intake Total 370 / 370 360 / 360 Output Total 0 / 0 700 / 700 Balance 370 / 370 -340 / -340 Weight 266 lb 2 oz 260 lb 11.2 oz Constitutional Constitutional: no acute distress and cooperative *Routine HEENT Exam Eye: Present PERRL *Routine Respiratory Exam Respiratory: Present CTA bilaterally; Absent accessory muscle use, wheezes or crackles *Routine Cardiovascular Exam Cardiovascular: Present RRR, Normal S1 and Normal S2; Absent murmur, gallop or rubs Comments: Right radial cath site normal on inspection and palpation *Routine Abdominal Exam Abdominal: Present soft; Absent tenderness *Routine Extremities Exam Extremities: Present pulses intact; Absent cyanosis or edema *Routine Skin Exam Skin: Present intact; Absent erythema or wounds *Routine Neurological Exam Neurological: Present alert and oriented X3 Routine Psychiatric Exam Psychiatric: Present cooperative Progress Note: A&P Assessment and plan (1) ST elevation myocardial infarction (STEMI) of anterior wall: Status: Acute (2) Hypertensive emergency: Status: Acute (3) Anxiety: Status: Acute (4) Hyperlipidemia: Status: Acute (5) Obesity: Status: Acute Assessment and Plan Assessment and Plan for All Diagnoses:: AW-STEMI - symptoms present 12h prior to presentation - [facility] 02/28 -LAD 90%, stented. OM 70% and 80%, RCA 70% and 80% EF 25%, LVEDP 35 - Echo is pending - Pt is SOA with Brilinta will change to Effient - Started on GDMT for CAD and HFrEF (although ECHO is pending) - Cardiac rehab at discharge - LifeVest if EF <35% Htn Emergency - untreated >1 year per pt - BP 180s with CP on arrival - well controlled now 120s or less post cath - BID BP log at home Hyperlipidemia - LDL 182 on arrival - start high dose statin Obesity, BMI 33 - discussed aggressive weight loss via diet/exercise/cardiac rehab *Pt will need to stay for 48h obs post ME.
[2024-03-01] MEDS: PRASUGREL 10MG TAB 60 MG PO (11:02)
--- NOTE | 2024-03-01 13:58 | EXP.ACUTE.PN ---
Subjective *Date: 03/01/24 *Time: 14:08 Interval history: Patient denied SOB, chest discomfort during evaluation with Dr. Rodriguez today. Patient reportedly suffered from some dyspnea issues on Brilinta, and currently being changed to Effient by portfolio consultant. Patient's present during examination by Dr. Rodriguez today. States SOB/chest discomfort much better after cardiac catheterization procedure yesterday. Requesting to walk in halls today. Denies fevers, chills overnight. Medical Exam Vital signs and Labs for Last 24 Hours: Vital Signs Temp Pulse Pulse Resp BP BP BP 03/01/24 12:52 03/01/24 12:00 80 03/01/24 11:20 97.9 F 91 H 22 115/41 L 03/01/24 11:00 03/01/24 10:00 81 20 108/79 L 03/01/24 08:02 98.0 F 03/01/24 08:00 90 03/01/24 08:00 80 18 136/78 03/01/24 07:38 03/01/24 07:35 03/01/24 06:57 03/01/24 06:30 137/95 H 03/01/24 06:00 80 16 144/109 H 03/01/24 04:52 03/01/24 04:00 80 03/01/24 04:00 03/01/24 04:00 98.2 F 85 16 132/89 03/01/24 03:00 03/01/24 02:00 84 14 149/102 H 03/01/24 00:50 03/01/24 00:00 80 03/01/24 00:00 98.8 F 82 16 135/84 02/29/24 23:15 87 16 149/101 H 02/29/24 22:54 02/29/24 22:14 82 17 148/87 H 02/29/24 21:15 91 H 16 164/100 H 02/29/24 20:56 02/29/24 20:15 101 H 18 172/115 H 02/29/24 20:00 80 02/29/24 19:45 02/29/24 19:15 98.2 F 91 H 16 156/98 H 02/29/24 18:45 87 16 170/115 H 02/29/24 18:42 02/29/24 18:15 85 18 178/101 H 02/29/24 17:47 97.6 F 02/29/24 17:45 83 18 167/123 H 02/29/24 17:15 79 18 165/108 H 02/29/24 17:00 76 20 158/97 H 02/29/24 16:59 02/29/24 16:45 80 18 160/104 H 02/29/24 16:43 02/29/24 16:30 81 20 160/99 H 02/29/24 16:20 96 H 18 166/105 H 02/29/24 16:15 96 H 18 166/109 H 02/29/24 16:14 90 92 H 18 166/87 H 02/29/24 16:10 96 H 18 164/102 H 02/29/24 16:05 90 18 164/104 H 02/29/24 16:00 90 18 154/109 H 02/29/24 16:00 92 H 18 166/87 H 02/29/24 15:21 97.7 F 93 H 14 179/117 H 02/29/24 15:00 93 H 14 179/117 H 02/29/24 14:54 100 H 15 187/124 H 02/29/24 14:52 97.7 F 96 H 16 187/115 H 02/29/24 14:45 96 H 16 187/115 H Pulse Ox O2 Del Method 03/01/24 12:52 Room Air 03/01/24 12:00 03/01/24 11:20 99 Room Air 03/01/24 11:00 Room Air 03/01/24 10:00 94 L Room Air 03/01/24 08:02 03/01/24 08:00 03/01/24 08:00 91 L Room Air 03/01/24 07:38 Room Air 03/01/24 07:35 Room Air 03/01/24 06:57 Room Air 03/01/24 06:30 03/01/24 06:00 93 L Room Air 03/01/24 04:52 Room Air 03/01/24 04:00 03/01/24 04:00 Room Air 03/01/24 04:00 93 L Room Air 03/01/24 03:00 Room Air 03/01/24 02:00 96 Room Air 03/01/24 00:50 Room Air 03/01/24 00:00 03/01/24 00:00 96 Room Air 02/29/24 23:15 95 Room Air 02/29/24 22:54 Room Air 02/29/24 22:14 97 Room Air 02/29/24 21:15 97 Room Air 02/29/24 20:56 Room Air 02/29/24 20:15 94 L Room Air 02/29/24 20:00 02/29/24 19:45 Room Air 02/29/24 19:15 96 Room Air 02/29/24 18:45 96 Room Air 02/29/24 18:42 Room Air 02/29/24 18:15 96 Room Air 02/29/24 17:47 02/29/24 17:45 97 Room Air 02/29/24 17:15 97 Room Air 02/29/24 17:00 95 Room Air 02/29/24 16:59 Room Air 02/29/24 16:45 94 L Room Air 02/29/24 16:43 Room Air 02/29/24 16:30 97 Room Air 02/29/24 16:20 96 Room Air 02/29/24 16:15 96 Room Air 02/29/24 16:14 96 Room Air 02/29/24 16:10 96 Room Air 02/29/24 16:05 96 Room Air 02/29/24 16:00 96 Room Air 02/29/24 16:00 96 Room Air 02/29/24 15:21 Room Air 02/29/24 15:00 97 Room Air 02/29/24 14:54 97 Room Air 02/29/24 14:52 98 Room Air 02/29/24 14:45 98 Room Air Intake and Output 02/29/24 03/01/24 03/01/24 23:59 07:59 15:59 Intake Total 370 / 370 600 / 600 Output Total 0 / 0 700 / 700 0 / 700 Balance 370 / 370 -700 / -100 600 / -100 Intake: Intake, Oral Amount 370 / 370 600 / 600 Output: Output, Urine Amount 0 / 0 700 / 700 0 / 700 Other: Number of Unmeasured Voids 1 0 1 Weight 120.712 kg 118.252 kg Patient Weight 03/01/24 23:59 Weight 118.252 kg Laboratory Results - last 24 hr 02/29/24 14:45: WBC 9.5, RBC 5.60, Hgb 16.9, Hct 51.6, MCV 92.1, MCH 30.2, MCHC 32.7, RDW 14.3, Plt Count 222, MPV 9.2, Neut % (Auto) 66.9, Lymph % (Auto) 24.0, [place] % (Auto) 7.8, Eos % (Auto) 0.2, Baso % (Auto) 1.1, Neut # (Auto) 6.4, Lymph # (Auto) 2.3, [place] # (Auto) 0.7, Eos # (Auto) 0.0, Baso # (Auto) 0.1, Sodium 141, Potassium 4.0, Chloride 106, Carbon Dioxide 29, Anion Gap 10.0, BUN 12, Creatinine 1.20, Estimated Creat Clear 101, Estimated GFR 61, Est GFR ( Amer) 74, Glucose 121 H, Calcium 9.5, Total Bilirubin 1.0, AST 125 H, ALT 72, Alkaline Phosphatase 96, Troponin I 6.23 H, Total Protein 8.4 H, Albumin 5.0, Globulin 3.4 H, Albumin/Globulin Ratio 1.5 02/29/24 15:21: Activated Clotting Time 340 H* 03/01/24 05:17: WBC 10.1, RBC 5.58, Hgb 17.1, Hct 51.2, MCV 91.8, MCH 30.6, MCHC 33.3, RDW 14.7, Plt Count 197, MPV 8.4, Neut % (Auto) 73.6, Lymph % (Auto) 17.3, [place] % (Auto) 8.5, Eos % (Auto) 0.2, Baso % (Auto) 0.5, Neut # (Auto) 7.4, Lymph # (Auto) 1.7, [place] # (Auto) 0.9, Eos # (Auto) 0.0, Baso # (Auto) 0.1, Sodium 138, Potassium 3.8, Chloride 108 H, Carbon Dioxide 20 L, Anion Gap 13.8, BUN 10, Creatinine 1.00, Estimated Creat Clear 126, Estimated GFR 75, Est GFR ( Amer) 91 D, Glucose 130 H, Calcium 9.5, Magnesium 2.1, Triglycerides 244 H, Cholesterol 287 H, LDL Cholesterol Direct 182.51 H, VLDL Cholesterol 49 H, HDL Cholesterol 38 L, Cholesterol/HDL Ratio 7.6 H I & O for Labs for Last 24 Hours: Intake & Output 02/27/24 02/28/24 02/29/24 03/01/24 23:59 23:59 23:59 23:59 Intake Total 370 / 370 600 / 600 Output Total 0 / 0 700 / 700 Balance 370 / 370 -100 / -100 Weight 120.712 kg 118.252 kg Radiology Reports for the Last 24 Hours: Left heart cath 02/28: -LAD 90%, stented. OM 70% and 80%, RCA 70% and 80% EF 25%, LVEDP 35 Head: Present normocephalic and normal inspection ENT: Present normal exam and normal oropharynx Neck: Present normal inspection and full ROM Respiratory: Present CTA bilaterally and normal respiratory effort Cardiac: Present Reg Rate and Rhythm GI: Present soft and normal bowel sounds Rectal (male): Present deferred (male): Present deferred Extremities: Present normal inspection and full ROM Skin: Present intact and dry Assessment and Plan *Assessment and plan (1) Hyperlipidemia: Status: Acute Category: Medical Code(s): E78.5 - Hyperlipidemia, unspecified (2) ST elevation myocardial infarction (STEMI) of anterior wall: Status: Acute Category: Medical Code(s): I21.09 - ST elevation (STEMI) myocardial infarction involving other coronary artery of anterior wall (3) Hypertensive emergency: Status: Acute Category: Medical Code(s): I16.1 - Hypertensive emergency (4) Acute systolic CHF (congestive heart failure): Status: Acute Category: Medical Code(s): I50.21 - Acute systolic (congestive) heart failure Plan STEMI status post emergent cardiac catheterization: ?03/01 patient doing well after cardiac cath yesterday. Will downgrade to [facility]. Appreciate cardiology assistance! Patient being transitioned from Brilinta to Effient due to shortness of breath issues. Patient also started on beta-andres medication by cardiology today. ? 02/28 admit to stepdown, LAD stent placed in [employer]. EF 25%. New onset heart failure with reduced ejection fraction EF 25%: ?03/01 patient started on metoprolol by cardiology today. Dr. Rodriguez started patient on spironolactone. ?02/28 EF 25% noted on cardiac cath today. Order echocardiogram for tomorrow, consult cardiology. Cautious fluid management throughout hospitalization. Start Entresto today. Hypertensive emergency: ?03/01 better controlled on Entresto, hydrochlorothiazide, spironolactone, metoprolol therapy. If patient shows signs of low blood pressure, will likely discontinue spironolactone therapy. ? 02/29/24 started on Entresto today. Also start hydrochlorothiazide 25 p.o. daily. Patient's blood pressure consistently above 160/100 during initial hospital assessments. Also placed as needed IV hydralazine on chart for elevated blood pressures. PPx: Lovenox subcutaneous starting 03/21. Patient given IV heparin in [employer] today. CODE STATUS full FEN: Cardiac diet Disposition: ?Will likely be discharged 03/02/2024 if cardiology agrees with disposition plans. Patient doing well after cardiac catheterization for STEMI amelioration. Case discussed with patient, patient's , nursing staff, case management, pharmacy, dietary, PT, OT during interdisciplinary treatment rounds by Dr. Rodriguez 03/01/24.
--- NOTE | 2024-03-01 14:43 | PC.WOUNDNOTE ---
PT IS RESTING IN BED. ALERT AND ORIENTED X4. PT HAS AMBULATED IN THE SNELL AND REQUESTED TO GO OUTSIDE WITH NURSING STAFF. LUNG SOUNDS CLEAR. ABDOMEN SOFT/NON TENDER WITH ACTIVE BOWEL SOUNDS. EATING AND DRINKING WELL. DRESSING TO RIGHT RADIAL CATH SITE C/D/I. VSS. WILL CONTINUE TO MONITOR.
[2024-03-01] MEDS: ATORVASTATIN 40MG TABLET 80 MG PO (20:00)
[2024-03-02] VITALS: BP 128/83; PULSE 70; PULSE 73; RESP 16; TEMP 36.9; O2SAT 96
[2024-03-02 04:00] VITALS: BP 123/77; PULSE 60; PULSE 64; RESP 16; TEMP 36.6; O2SAT 97; BMI 33.1
--- NOTE | 2024-03-02 05:57 | PC.NURSE ---
no acute changes overnight. family member spent the night with patient.
[2024-03-02 06:45] LABS: Basophils # 0.1 K/mm3 (0-0.2); Basophils % 0.7 % (0.1-2.0); Eosinophils # 0.1 K/mm3 (0.0-0.4); Eosinophils % 0.7 % (0.1-12.0); Hematocrit 48.2 % (42.0-52.0); Hemoglobin 16.1 g/dL (14.1-18.0); Lymphocytes # 2.6 K/mm3 (0.7-4.5); Mean Corpuscular HGB Conc 33.3 g/dL (31.8-35.4); Mean Corpuscular Hemoglobin 30.7 pg (27.0-31.2); Mean Corpuscular Volume 92.1 fl (80-94); Mean Platelet Volume 8.8 fl (7.4-10.4); Monocytes # 0.9 K/mm3 (0.1-1.0); Monocytes % 9.8 % (1.7-9.3); Neutrophils # 5.6 K/mm3 (1.8-7.8); Neutrophils % 60.7 % (37.0-80.0); Platelet Count 197 K/mm3 (142-424); Red Blood Count 5.23 M/mm3 (4.60-6.20); Red Cell Distribution Width 14.8 % (11.5-17.5); White Blood Count 9.1 K/mm3 (4.8-10.8)
[2024-03-02 06:51] LABS: Anion Gap 10.6 mEq/L (5-15); Blood Urea Nitrogen 22 mg/dl (9-20); Calcium 9.2 mg/dl (8.4-10.2); Carbon Dioxide 21 mmol/L (22.0-30.0); Chloride 106 mmol/L (98-107); Creatinine Clearance Estimated 96 mL/min (50-200); Estimated Glomerular Filt Rate 56 ml/min (>60); GFR (African American) 67 ML/MIN (>60); Glucose 103 mg/dl (74-100); Magnesium 2.2 mg/dl (1.6-2.3); Potassium 3.6 mmoL/L (3.5-5.1); Sodium 134 mmol/L (136-145)
[2024-03-02 07:50] VITALS: BP 123/71; PULSE 70; RESP 18; TEMP 36.5; O2SAT 98
[2024-03-02 08:00] VITALS: PULSE 70
[2024-03-02] MEDS: PANTOPRAZOLE 40MG TABLET 40 MG PO (08:17)
[2024-03-02] MEDS: SPIRONOLACTONE 25MG TABLET 25 MG PO (08:17)
[2024-03-02] MEDS: METOPROLOL SUCCINATE XL 25MG TABLET 25 MG PO (08:17)
[2024-03-02] MEDS: ASPIRIN EC 81MG TABLET 81 MG PO (08:17)
[2024-03-02] MEDS: DAPAGLIFLOZIN PROPANEDIOL 10 MG TABLET PO (08:17)
[2024-03-02] MEDS: ENOXAPARIN 40MG/0.4ML SYRINGE 40 MG SQ (08:17)
[2024-03-02] MEDS: OXYMETAZOLINE NASAL SPRAY 0.05% 15ML NS (08:18)
[2024-03-02] MEDS: SACUBITRIL/VALSARTAN 24-26MG TABLET 1 EACH PO (08:18)
[2024-03-02] MEDS: PRASUGREL 10MG TAB 10 MG PO (08:18)
--- NOTE | 2024-03-02 10:03 | P.DS_ITS ---
General Admission date:: 02/29/24 Discharge date: 03/02/24 HPI HPI HPI: Really nice patient with past medical history of hypertension without medication. Patient presented to hospital complaining of chest pain. Patient found to have STEMI in emergency room and immediately taken to [facility]. Patient evaluated by Dr. Rodriguez prior to [facility] trip. Stated that he suffered from chest discomfort today 5/10, achy, substernal, nonradiating without prodromal symptoms. Denied taking any medications at home. Denied fevers, chills, known sick contacts, recent travel, blurry vision, headaches, abdominal pain, diarrhea, constipation. Patient received LAD stent in [facility] and noted to have ejection fraction 25%. Denies history of heart failure. Blood pressure consistently above 160/100 during initial hospitalization evaluations. Denies taking blood pressure medicines at home. Hospital Course Hospital Course Hospital Course: Patient presented to hospital, complaint of chest pain, and rapidly diagnosed with STEMI. Patient taken to [facility] with LAD stent placed. Patient monitored in hospital for 48 hours, with chest pain resolved after cardiac stent placement. Cardiac catheterization showed EF 25 to 30%. Patient had repeat echocardiogram done 03/21 showing EF 45%. Patient subsequently did not require LifeVest at time of hospital discharge. Patient monitored by cardiology throughout hospitalization. Patient originally started on Brilinta, but suffered from shortness of breath problems. Patient transition to prasugrel therapy in conjunction with aspirin during hospitalization. Patient ultimately discharged on prasugrel/aspirin therapy with instruction to follow-up with cardiology on outpatient basis. Patient also suffered from hypertensive emergency problems during hospitalization. Patient started on antihypertensive medicines including Entresto, spironolactone, hydrochlorothiazide with blood pressure trending to normal range. Patient ultimately discharged in hospital instructed to follow-up with both cardiology and primary care physician for further blood pressure control. Exam Data for Last 24 hours Vital signs and Labs for Last 24 Hours: Temp Pulse Resp BP Pulse Ox O2 Del Method 97.7 F 70 18 123/71 98 Room Air 03/02/24 07:50 03/02/24 07:50 03/02/24 07:50 03/02/24 07:50 03/02/24 07:50 03/02/24 07:50 Laboratory Results - last 24 hr 03/02/24 05:30: WBC 9.1, RBC 5.23, Hgb 16.1, Hct 48.2, MCV 92.1, MCH 30.7, MCHC 33.3, RDW 14.8, Plt Count 197, MPV 8.8, Neut % (Auto) 60.7, Lymph % (Auto) 28.0, [place] % (Auto) 9.8 H, Eos % (Auto) 0.7, Baso % (Auto) 0.7, Neut # (Auto) 5.6, Lymph # (Auto) 2.6, [place] # (Auto) 0.9, Eos # (Auto) 0.1, Baso # (Auto) 0.1, Sodium 134 L, Potassium 3.6, Chloride 106, Carbon Dioxide 21 L, Anion Gap 10.6, BUN 22 H D, Creatinine 1.30 H D, Estimated Creat Clear 96, Estimated GFR 56 L, Est GFR ( Amer) 67 D, Glucose 103 H, Calcium 9.2, Magnesium 2.2 I & O for Last 24 hours: Intake & Output 02/28/24 02/29/24 03/01/24 03/02/24 23:59 23:59 23:59 23:59 Intake Total 370 / 370 1210 / 1210 250 / 250 Output Total 0 / 0 700 / 700 0 / 0 Balance 370 / 370 510 / 510 250 / 250 Weight 120.712 kg 118.252 kg 117.163 kg *Routine HEENT Exam Head: Present normocephalic Eye: Present EOMI and normal accommodation ENT: Present mucous membranes moist *Routine Neck Exam Neck: Present supple and full ROM *Routine Respiratory Exam Respiratory: Present CTA bilaterally and normal respiratory effort *Routine Cardiovascular Exam Cardiovascular: Present RRR, Normal S1 and Normal S2 *Routine Abdominal Exam Abdominal: Present soft and normoactive bowel sounds *Routine Extremities Exam Extremities: Present full ROM and normal capillary refill *Routine Skin Exam Skin: Present intact and dry *Routine Neurological Exam Neurological: Present alert, oriented X3 and CN II-XII intact Results Data Completed and Pending Completed studies during hospitalization [Text1]: 02/29/2024 cardiac catheterization report IMPRESSION Anterior ST elevation myocardial infarction accompanied by drug-eluting stent deployment to the proximal to mid LAD reducing the critical stenosis to 0% Persistent severe stenosis and a large codominant circumflex artery Persistent severe stenosis in the distal codominant right coronary artery Severely reduced ejection fraction with elevated LVEDP PLAN 1. Continue Brilinta and aspirin 2. Start Entresto and uptitrate 3. Hold for beta-blockers for the time being and start once more hemodynamically stable and after patient is tolerating Entresto 4. Start high intensity statin with a goal LDL less than 55 5. Echocardiogram in the morning 6. LifeVest prior to discharge 7. Supportive care Labs on day of discharge: Labs from last 24 hours 03/02/24 05:30 WBC 9.1 RBC 5.23 Hgb 16.1 Hct 48.2 MCV 92.1 MCH 30.7 MCHC 33.3 RDW 14.8 Plt Count 197 MPV 8.8 Neut % (Auto) 60.7 Lymph % (Auto) 28.0 [place] % (Auto) 9.8 H Eos % (Auto) 0.7 Baso % (Auto) 0.7 Neut # (Auto) 5.6 Lymph # (Auto) 2.6 [place] # (Auto) 0.9 Eos # (Auto) 0.1 Baso # (Auto) 0.1 Sodium 134 L Potassium 3.6 Chloride 106 Carbon Dioxide 21 L Anion Gap 10.6 BUN 22 H D Creatinine 1.30 H D Estimated Creat Clear 96 Estimated GFR 56 L Est GFR ( Amer) 67 D Glucose 103 H Calcium 9.2 Magnesium 2.2 Additional Comments Additional comments: 03/01/2024 CXR: IMPRESSION: No acute cardiopulmonary process. 03/01/2024 echo: Conclusion Mild reduction in LV systolic function (LVEF 45%). The bases have normal contractility. There is severe hypokinesis of the LV apex. Mild RV dilation. No significant valvular stenosis or regurgitation. DS: Diagnosis Discharge Diagnosis (1) Hyperlipidemia: Status: Acute Code(s): E78.5 - Hyperlipidemia, unspecified (2) ST elevation myocardial infarction (STEMI) of anterior wall: Status: Acute Code(s): I21.09 - ST elevation (STEMI) myocardial infarction involving other coronary artery of anterior wall (3) Hypertensive emergency: Status: Acute Code(s): I16.1 - Hypertensive emergency (4) Acute systolic CHF (congestive heart failure): Status: Acute Code(s): I50.21 - Acute systolic (congestive) heart failure Meds Home Medications and Allergies Home Medications ?Medication ?Instructions ?Recorded ?Confirmed ?Type aspirin 81 mg tablet,delayed 81 mg PO DAILY #90 tabs 03/02/24 Rx release atorvastatin 40 mg tablet 80 mg (2 x 40 mg) PO HS #90 tabs 03/02/24 Rx dapagliflozin propanediol 10 mg 10 mg PO DAILY #90 tabs 03/02/24 Rx tablet (Farxiga) hydrochlorothiazide 25 mg tablet 25 mg PO DAILY #90 tabs 03/02/24 Rx metoprolol succinate 25 mg 25 mg PO DAILY #90 tabs 03/02/24 Rx tablet,extended release 24 hr prasugrel 10 mg tablet 10 mg PO DAILY #90 tabs 03/02/24 Rx sacubitril 24 mg-valsartan 26 mg 1 tab PO BID #90 tabs 03/02/24 Rx tablet (Entresto) spironolactone 25 mg tablet 25 mg PO DAILY #90 tabs 03/02/24 Rx New Prescriptions to Start Prescriptions: aspirin Rodriguez,Paramjit atorvastatin Rodriguez,Paramjit dapagliflozin propanediol [Farxiga] Rodriguez,Sunray hydrochlorothiazide Rodriguez,Paramjit metoprolol succinate Rodriguez,Sunray prasugrel Rodriguez,Paramjit sacubitril-valsartan [Entresto] Rodriguez,Sunray spironolactone Rodriguez,Sunray Allergies Allergy/AdvReac Type Severity Reaction Status Date / Time No Known Allergies Allergy Verified 02/29/24 15:04 Discharge Plan Disposition Patient Disposition: Home, Self-Care Condition: Fair Discharge Order Discharge Orders: Discharge Order (Routine); Ordered 03/02/24 Ordered By: Paramjit Rodriguez Follow up Plan Follow up with: Randy Yan MD [Staff Physician] - 03/07/24 9:45 am ProviderDanie MD [Primary Care Provider] - Enter time for follow up (Follow-up after hospitalization for STEMI) Prescriptions/Medication Reconciliation: New atorvastatin 40 mg Tablet 80 mg PO HS Qty: 90 0RF aspirin 81 mg Tablet,Delayed Release (Dr/Ec) 81 mg PO DAILY Qty: 90 0RF spironolactone 25 mg Tablet 25 mg PO DAILY Qty: 90 0RF hydrochlorothiazide 25 mg Tablet 25 mg PO DAILY Qty: 90 0RF metoprolol succinate 25 mg Tablet Extended Release 24 Hr 25 mg PO DAILY Qty: 90 0RF dapagliflozin propanediol [Farxiga] 10 mg Tablet 10 mg PO DAILY Qty: 90 0RF Entresto 24-26 mg Tablet 1 tab PO BID Qty: 90 0RF prasugrel 10 mg Tablet 10 mg PO DAILY Qty: 90 0RF Discontinued hawthorn anna 500 mg Capsule 500 mg PO DAILY Problem Reconciliation Problems Reviewed?: Yes Patient Discharge Instructions ACTIVITY: Continue current activity DIET: continue same diet Patient Instructions: DI for Heart Attack, DI for Cardiac Catheterization, DI for Surgical Site Infection Print Language: Sami Providers Primary Care Provider: Provider,Referral Admit Provider: Paramjit Rodriguez Attending Provider: Paramjit Rodriguez
[2024-03-02] MEDS: POTASSIUM CHLORIDE 20MEQ TAB 40 MEQ PO (10:24)
--- NOTE | 2024-03-02 10:58 | PC.NURSE ---
appt made with valery dutton in [place] for 03/13 @ 3:00
--- NOTE | 2024-03-02 11:33 | P.PN_ITS ---
Subjective Subjective Date: 03/02/24 Time: 09:30 Interval history: Stable overnight, no further events. Patient feeling well and anticipating discharge today. Labs and vital stable. He is tolerating his medicines well. Echo showed EF 45 to 50%, does not need LifeVest. Exam Data for Last 24 hours Vital signs and Labs for Last 24 Hours: Temp Pulse Resp BP Pulse Ox O2 Del Method 97.7 F 70 18 123/71 98 Room Air 03/02/24 07:50 03/02/24 08:00 03/02/24 07:50 03/02/24 07:50 03/02/24 07:50 03/02/24 09:00 Laboratory Results - last 24 hr 03/02/24 05:30: WBC 9.1, RBC 5.23, Hgb 16.1, Hct 48.2, MCV 92.1, MCH 30.7, MCHC 33.3, RDW 14.8, Plt Count 197, MPV 8.8, Neut % (Auto) 60.7, Lymph % (Auto) 28.0, [place] % (Auto) 9.8 H, Eos % (Auto) 0.7, Baso % (Auto) 0.7, Neut # (Auto) 5.6, Lymph # (Auto) 2.6, [place] # (Auto) 0.9, Eos # (Auto) 0.1, Baso # (Auto) 0.1, Sodium 134 L, Potassium 3.6, Chloride 106, Carbon Dioxide 21 L, Anion Gap 10.6, BUN 22 H D, Creatinine 1.30 H D, Estimated Creat Clear 96, Estimated GFR 56 L, Est GFR ( Amer) 67 D, Glucose 103 H, Calcium 9.2, Magnesium 2.2 I & O for Last 24 hours: Intake & Output 02/28/24 02/29/24 03/01/24 03/02/24 23:59 23:59 23:59 23:59 Intake Total 370 / 370 1210 / 1210 250 / 250 Output Total 0 / 0 700 / 700 0 / 0 Balance 370 / 370 510 / 510 250 / 250 Weight 266 lb 2 oz 260 lb 11.2 oz 258 lb 4.8 oz Constitutional Constitutional: no acute distress and cooperative *Routine HEENT Exam Eye: Present PERRL *Routine Respiratory Exam Respiratory: Present CTA bilaterally; Absent accessory muscle use, wheezes or crackles *Routine Cardiovascular Exam Cardiovascular: Present RRR, Normal S1 and Normal S2; Absent murmur, gallop or rubs Comments: Right radial cath site normal on inspection and palpation *Routine Abdominal Exam Abdominal: Present soft; Absent tenderness *Routine Extremities Exam Extremities: Present pulses intact; Absent cyanosis or edema *Routine Skin Exam Skin: Present intact; Absent erythema or wounds *Routine Neurological Exam Neurological: Present alert and oriented X3 Routine Psychiatric Exam Psychiatric: Present cooperative Progress Note: A&P Assessment and plan (1) ST elevation myocardial infarction (STEMI) of anterior wall: Status: Acute (2) Acute systolic CHF (congestive heart failure): Status: Acute (3) Hyperlipidemia: Status: Acute (4) Hypertensive emergency: Status: Acute Assessment and Plan Assessment and Plan for All Diagnoses:: AW-STEMI 02/29/24 - symptoms present 12h prior to presentation - [facility] 02/28 -LAD 90%, stented. OM 70% and 80%, RCA 70% and 80% EF 25%, LVEDP 35 - Echo shows EF 45% with severe hypokinesis of LV apex - Pt was SOA with Brilinta - tolerating Effient much better - Started on GDMT for CAD and HFrEF and otherwise tolerating well. Needs generics/samples due to no insurance per case management - Cardiac rehab at discharge Htn Emergency - untreated >1 year per pt - BP 180s with CP on arrival - well controlled now 120s or less post cath - BID BP log at home Hyperlipidemia - LDL 182 on arrival - start high dose statin Obesity, BMI 33 - discussed aggressive weight loss via diet/exercise/cardiac rehab Pt is CV stable for discharge home. Needs no work and f/u in our office in 2 weeks. CV DC Meds: Aspirin 81 mg 1 p.o. daily Atorvastatin 80 mg 1 p.o. nightly Farxiga 10 mg daily (can DC If no samples available) Toprol-XL 25 mg 1 p.o. daily Effient 10 mg 1 p.o. daily Entresto 24?26 1 p.o. twice daily (can change to Valsartan 40mg BID if not affordable/no samples) Aldactone 25 mg daily Discontinue hydrochlorothiazide
--- NOTE | 2024-03-02 12:44 | DIET.NUTRFU ---
Patient is ready for discharge provided and reviewed cardiac diet handouts, he stated he has already made some diet changes over the last year and plans to continue
--- NOTE | 2024-03-06 15:52 | SW/DCPLANNER ---
Hospital follow up phone call: patient stated that he was doing well and did not have any needs at this time. 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 Patient did not have any further needs/questions at this time.
== END 2024-03-02 13:25 | disposition home or self-care (01) | DRG 321 ==
LOC: ER 15:24 → CATHLAB 15:25 → 2ND 15:45
PROVIDERS: Internal Medicine; Admitting Provider Internal Medicine; Emergency Provider Emergency Medicine; Visit Provider Internal Medicine
PROC: 027034Z Dilation of Coronary Artery, One Artery with Drug-eluting Intraluminal Device, Percutaneous Approach (ICD-10-PCS; principal; 2024-02-29 15:15)
DX: I21.09 ST elevation (STEMI) myocardial infarction involving other coronary artery of anterior wall (principal); I50.21 Acute systolic (congestive) heart failure; I16.1 Hypertensive emergency; I11.0 Hypertensive heart disease with heart failure; E66.9 Obesity, unspecified; Z68.33 Body mass index [BMI] 33.0-33.9, adult; E78.5 Hyperlipidemia, unspecified; I25.10 Atherosclerotic heart disease of native coronary artery without angina pectoris
CPT/HCPCS: 36415; 71045; 80048; 80053; 80061; 83735; 84484; 85025; 85347; 92928; 93005; 93306; 93458; 99152; 99153; 99291; C1725; C1760; C1769; C1874; C9600; J0360; J1200; J1644; J1650; J2250; J3010; Q9967

== ENCOUNTER 2024-05-30 09:34 | Outpatient (CLI) | payer SELFPAY ==
[2024-05-30 10:02] LABS: Basophils # 0.1 K/mm3 (0-0.2); Basophils % 1.6 % (0.1-2.0); Eosinophils # 0.1 K/mm3 (0.0-0.4); Hematocrit 44.1 % (42.0-52.0); Hemoglobin 15.2 g/dL (14.1-18.0); Lymphocytes # 2.1 K/mm3 (0.7-4.5); Lymphocytes % 31.9 % (10-50); Mean Corpuscular HGB Conc 34.4 g/dL (31.8-35.4); Mean Corpuscular Hemoglobin 30.6 pg (27.0-31.2); Mean Platelet Volume 8.4 fl (7.4-10.4); Monocytes # 0.5 K/mm3 (0.1-1.0); Monocytes % 8.1 % (1.7-9.3); Neutrophils # 3.8 K/mm3 (1.8-7.8); Neutrophils % 57.4 % (37.0-80.0); Platelet Count 190 K/mm3 (142-424); Red Blood Count 4.95 M/mm3 (4.60-6.20); White Blood Count 6.7 K/mm3 (4.8-10.8)
[2024-05-30 11:04] LABS: Alanine Aminotransferase 28 U/L (12-78); Albumin Level 4.6 g/dl (3.5-5.0); Alkaline Phosphatase 84 U/L (38-126); Aspartate Amino Transferase 23 U/L (17-59); Bilirubin,Direct 0.3 mg/dl (0.0-0.4); Bilirubin,Indirect 0.3 mg/dL (0.0-0.9); Bilirubin,Total 0.6 mg/dl (0.2-1.3); Bilirubin,Unconjugated 0.3 mg/dL (0.0-1.1); Blood Urea Nitrogen 20 mg/dl (9-20); Calcium 9.5 mg/dl (8.4-10.2); Carbon Dioxide 27 mmol/L (22.0-30.0); Chloride 104 mmol/L (98-107); Chol/HDL Ratio 6.4 (1-3.5); Cholesterol 250 mg/dl (140-200); Estimated Glomerular Filt Rate 61 ml/min (>60); GFR (African American) 74 ML/MIN (>60); Glucose 127 mg/dl (74-100); HDL Cholesterol 39 mg/dl (40-60); Magnesium 1.9 mg/dl (1.6-2.3); Sodium 139 mmol/L (136-145); Total Protein,Serum 7.2 g/dl (6.3-8.2); Triglycerides 250 mg/dl (30-150); VLDL Cholesterol 50 mg/dL (0-40)
[2024-05-30 11:20] LABS: Direct LDL Cholesterol 162.61 mg/dL (100-129)
[2024-05-30 11:29] LABS: Thyroid Stimulating Hormone 1.24 uIU/mL (0.465-4.68)
[2024-05-30 16:42] LABS: Free T4 (Free Thyroxine) 1.11 ng/dl (0.78-2.19)
== END 2024-05-30 23:59 | disposition home or self-care (01) ==
LOC: LAB 09:35
PROVIDERS: Visit Provider Physician Assistant
DX: I50.20 Unspecified systolic (congestive) heart failure (principal); I25.10 Atherosclerotic heart disease of native coronary artery without angina pectoris; E78.49 Other hyperlipidemia; I15.0 Renovascular hypertension
CPT/HCPCS: 80048; 80061; 80076; 83735; 84439; 84443; 85025